=== PATIENT | female | born 1980 | race Asian ===

== ENCOUNTER 2018-05-31 14:38 | Inpatient (IN) | payer BC ==
[~2018-05-31] VITALS: Ht 154.9 cm; Wt 29.5 kg
[2018-05-31] MEDS ORDERED: D5 1/2NS w/KCl 20mEq 1,000 ML IV SCH (14:45)
--- NOTE | 2018-05-31 14:45 | Emergency Room Report ---
History of Present Illness General Source: Patient, EMS Present Illness HPI She is a 38-year-old female brought in by EMS after being found slumped over her steering wheel. Patient was noted to have abnormally low blood sugar when tested by EMS. Patient had been given D10 by EMS with some improvement in her blood sugar. Patient had not been vomiting. She reports having no food this morning. Patient states that she had previously been hospitalized after similar symptoms in the past.Patient had no prior surgeries. She has no prior history of diabetes. Allergies: Coded Allergies: No Known Allergies (Unverified , 05/31/18) Patient History Past Medical History: see triage record Reviewed Nursing Documentation: PMH: Agreed; PSxH: Agreed Review of Systems All Other Systems: negative except mentioned in HPI Physical Exam Sp02 EP Interpretation: reviewed, normal General Appearance: normal inspection, well appearing, no apparent distress, alert, GCS 15, Chronically Ill Head: atraumatic ENT: normal ENT inspection, hearing grossly normal, normal voice Neck: normal inspection, full range of motion, supple, no bony tend Respiratory: normal inspection, lungs clear, normal breath sounds, no respiratory distress, no retraction, no wheezing Cardiovascular #1: regular rate, rhythm, no edema Gastrointestinal: normal inspection, normal bowel sounds, non tender, soft, no guarding, no hernia Genitourinary: no CVA tenderness Musculoskeletal: normal inspection, back normal, normal range of motion Neurologic: normal inspection, alert, oriented x3, responsive, mangle press catcher III-XII nml as tested, motor strength/tone normal, speech normal Psychiatric: normal inspection, judgement/insight normal Skin: normal inspection, normal color, no rash Medical Decision Making Diagnostic Impression: Primary Impression: Hypoglycemia Additional Impression: Malnutrition ER Course Patient is a 38-year-old female presented after low blood sugar. Differential diagnosis includes is not limited to malnutrition, insulin overdose, sepsis, among others. Because of complexity of patient's case laboratory testing and imaging studies were ordered.Patient was given IV fluids as well as IV oral juice. Patient was noted to have been extremely thin with very little metabolic reserve. Patient's hypoglycemia is likely related to poor oral intake and anorexia. Dr. Kt Trivedi was contacted for inpatient management. Labs Test 05/31/18 15:05 05/31/18 15:12 06/01/18 06:45 06/02/18 06:18 Phosphorus Level 4.3 MG/DL (2.5-4.9) Magnesium Level 2.5 MG/DL (1.8-2.4) Total Bilirubin 0.5 MG/DL (0.2-1.0) Aspartate Amino Transf (AST/SGOT) 107 U/L (15-37) Alanine Aminotransferase (ALT/SGPT) 62 U/L (12-78) Alkaline Phosphatase 70 U/L (46-116) Troponin I 0.000 ng/mL (0.000-0.056) Total Protein 5.7 G/DL (6.4-8.2) Albumin 3.5 G/DL (3.4-5.0) Globulin 2.2 g/dL Albumin/Globulin Ratio 1.6 (1.0-2.7) Lipase 165 U/L (73-393) Urine Color Yellow Urine Appearance Cloudy Urine pH 7 (4.5-8.0) Urine Specific [place] 1.010 (1.005-1.035) Urine Protein 1+ (NEGATIVE) Urine Glucose (UA) 2+ (NEGATIVE) Urine Ketones Negative (NEGATIVE) Urine Blood Negative (NEGATIVE) Urine Nitrite Negative (NEGATIVE) Urine Bilirubin Negative (NEGATIVE) Urine Urobilinogen 1 MG/DL (0.0-1.0) Urine Leukocyte Esterase 1+ (NEGATIVE) Urine RBC 0-2 /HPF (0 - 2) Urine WBC 2-4 /HPF (0 - 2) Urine Squamous Epithelial Cells Occasional /LPF Urine Amorphous Sediment Many /LPF (NONE) Urine Bacteria Moderate /HPF (NONE) Urine HCG, Qualitative Negative (NEGATIVE) Urine Opiates Screen Negative (NEGATIVE) Urine Barbiturates Screen Negative (NEGATIVE) Phencyclidine (PCP) Screen Negative (NEGATIVE) Urine Amphetamines Screen Negative (NEGATIVE) Urine Benzodiazepines Screen Negative (NEGATIVE) Urine Cocaine Screen Negative (NEGATIVE) Urine Marijuana (THC) Screen Negative (NEGATIVE) Hypochromasia 1+ White Blood Count 2.8 K/UL (4.8-10.8) Red Blood Count 3.97 M/UL (4.20-5.40) Hemoglobin 13.1 G/DL (12.0-16.0) Hematocrit 37.1 % (37.0-47.0) Mean Corpuscular Volume 93 FL (80-99) Mean Corpuscular Hemoglobin 32.9 PG (27.0-31.0) Mean Corpuscular Hemoglobin Concent 35.3 G/DL (32.0-36.0) Red Cell Distribution Width 11.3 % (11.6-14.8) Platelet Count 122 K/UL (150-450) Mean Platelet Volume 6.2 FL (6.5-10.1) Neutrophils (%) (Auto) % (45.0-75.0) Lymphocytes (%) (Auto) % (20.0-45.0) Monocytes (%) (Auto) % (1.0-10.0) Eosinophils (%) (Auto) % (0.0-3.0) Basophils (%) (Auto) % (0.0-2.0) Differential Total Cells Counted 100 Neutrophils % (Manual) 44 % (45-75) Lymphocytes % (Manual) 48 % (20-45) Monocytes % (Manual) 7 % (1-10) Eosinophils % (Manual) 0 % (0-3) Basophils % (Manual) 0 % (0-2) Band Neutrophils 1 % (0-8) Platelet Estimate Decreased Platelet Morphology Normal Red Blood Cell Morphology Normal Sodium Level 139 MMOL/L (136-145) Potassium Level 4.2 MMOL/L (3.5-5.1) Chloride Level 105 MMOL/L (98-107) Carbon Dioxide Level 29 MMOL/L (21-32) Anion Gap 5 mmol/L (5-15) Blood Urea Nitrogen 26 mg/dL (7-18) Creatinine 0.9 MG/DL (0.55-1.30) Estimat Glomerular Filtration Rate > 60 mL/min (>60) Glucose Level 56 MG/DL (74-106) Calcium Level 8.6 MG/DL (8.5-10.1) EKG Diagnostic Results Rate: bradycardiac - 42 Rhythm: NSR ST Segments: no acute changes Status: improved Disposition: ADMITTED INPATIENT Condition: Stable Scripts No Active Prescriptions or Reported Meds Alberto Noe MD May 31, 2018 14:45
[2018-05-31 15:00] VITALS: BP 107/73
[2018-05-31 15:35] LABS: ANION GAP 8 mmol/L (5-15); BLOOD UREA NITROGEN 38 mg/dL (7-18); CALCIUM 8.2 MG/DL (8.5-10.1); CARBON DIOXIDE 29 MMOL/L (21-32); CHLORIDE 106 MMOL/L (98-107); CREATININE 1.1 MG/DL (0.55-1.30); POTASSIUM 3.9 MMOL/L (3.5-5.1); SODIUM 143 MMOL/L (136-145)
[2018-05-31 15:36] LABS: APPEARANCE,URINE CLOUDY; BILIRUBIN, URINE NEGATIVE (NEGATIVE); GLUCOSE, URINE (UA) 2+ (NEGATIVE); KETONES,URINE NEGATIVE (NEGATIVE); LEUKOCYTE ESTERASE ,URINE 1+ (NEGATIVE); NITRITE,URINE NEGATIVE (NEGATIVE); PH,URINE 7 (4.5-8.0); PROTEIN,URINE 1+ (NEGATIVE); UROBILINOGEN,URINE 1 MG/DL (0.0-1.0)
[2018-05-31 15:39] LABS: ALANINE AMINOTRANSFERASE 62 U/L (12-78); ALBUMIN 3.5 G/DL (3.4-5.0); ALBUMIN/GLOBULIN RATIO 1.6 (1.0-2.7); ALKALINE PHOSPHATASE 70 U/L (46-116); ASPARTATE AMINO TRANSFERASE 107 U/L (15-37); BILIRUBIN,TOTAL 0.5 MG/DL (0.2-1.0)
[2018-05-31 15:41] LABS: COLOR,URINE YELLOW
[2018-05-31 15:54] LABS: BASOPHILS % (AUTO) 0.4 % (0.0-2.0); EOSINOPHILS % (AUTO) 0.1 % (0.0-3.0); HEMATOCRIT 31.9 % (37.0-47.0); HEMOGLOBIN 11.1 G/DL (12.0-16.0); LYMPHOCYTES % (AUTO) 14.8 % (20.0-45.0); MEAN CORPUSCULAR VOLUME 92 FL (80-99); MONOCYTES % (AUTO) 3.3 % (1.0-10.0); NEUTROPHILS % (AUTO) 81.7 % (45.0-75.0); PLATELET COUNT 108 K/UL (150-450); RED BLOOD COUNT 3.46 M/UL (4.20-5.40); RED CELL DISTRIBUTION WIDTH 10.6 % (11.6-14.8)
[2018-05-31 16:00] VITALS: BP 104/71
[2018-05-31 16:35] LABS: PHOSPHORUS 4.3 MG/DL (2.5-4.9)
[2018-05-31 17:03] VITALS: BP 103/72
--- NOTE | 2018-05-31 18:23 | Consultation ---
History of Present Illness General Date patient seen: May 31, 2018 Time patient seen: 18:23 Chief Complaint: Abnormal Labs Present Illness HPI The patient is a 38-year-old [place] female with known history of bulimia and anorexia. The patient says that she does induce vomiting on a daily basis. She was brought in by EMS after having a hypoglycemic syncopal episode while driving. She was given glucose and has improved drastically. She is drastically underweight at 66 pounds. The patient says that she does struggle with eating disorders. No chest pain, nausea, vomiting, or diarrhea. The patient denies any taking any medications to induce diarrhea or vomiting. Cardiology consulted to evaluate for cardiac cachexia and bradycardia. Allergies: Coded Allergies: No Known Allergies (Unverified , 05/31/18) Medication History No Active Prescriptions or Reported Meds Patient History Healthcare decision maker Resuscitation status Advanced Directive on File Review of Systems Constitutional: Reports: no symptoms Eye: Reports: no symptoms ENT: Reports: no symptoms Respiratory: Reports: no symptoms Cardiovascular: Reports: no symptoms Gastrointestinal: Reports: abdominal pain, vomiting Genitourinary: Reports: no symptoms Musculoskeletal: Reports: no symptoms Skin: Reports: no symptoms Psychiatric: Reports: no symptoms Neurological: Reports: no symptoms Endocrine: Reports: no symptoms Hematologic/Lymphatic: Reports: no symptoms Physical Exam General Appearance: no apparent distress, alert Lines, tubes and drains: peripheral HEENT: normocephalic, atraumatic Neck: non-tender, normal alignment, supple Respiratory/Chest: chest wall non-tender, lungs clear, normal breath sounds Cardiovascular/Chest: normal peripheral pulses, normal rate, regular rhythm Abdomen: normal bowel sounds, non tender, soft Extremities: normal range of motion, non-tender, normal inspection Skin Exam: normal pigmentation 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, no motor/sensory deficits Last 24 Hour Vital Signs Date Time Temp Pulse Resp B/P (MAP) Pulse Ox O2 Delivery O2 Flow Rate FiO2 05/31/18 18:08 98.0 46 15 104/72 99 Room Air 05/31/18 17:03 98.1 48 13 103/72 100 Room Air 05/31/18 17:02 48 13 Room Air 05/31/18 16:00 44 12 104/71 100 Room Air 05/31/18 15:00 94.5 44 11 107/73 100 Room Air 05/31/18 14:40 98.1 55 12 121/57 99 Room Air Laboratory Tests Test 05/31/18 15:05 05/31/18 15:12 White Blood Count 3.0 K/UL (4.8-10.8) L Red Blood Count 3.46 M/UL (4.20-5.40) L Hemoglobin 11.1 G/DL (12.0-16.0) L Hematocrit 31.9 % (37.0-47.0) L Mean Corpuscular Volume 92 FL (80-99) Mean Corpuscular Hemoglobin 31.9 PG (27.0-31.0) H Mean Corpuscular Hemoglobin Concent 34.7 G/DL (32.0-36.0) Red Cell Distribution Width 10.6 % (11.6-14.8) L Platelet Count 108 K/UL (150-450) L Mean Platelet Volume 6.6 FL (6.5-10.1) Neutrophils (%) (Auto) 81.7 % (45.0-75.0) H Lymphocytes (%) (Auto) 14.8 % (20.0-45.0) L Monocytes (%) (Auto) 3.3 % (1.0-10.0) Eosinophils (%) (Auto) 0.1 % (0.0-3.0) Basophils (%) (Auto) 0.4 % (0.0-2.0) Sodium Level 143 MMOL/L (136-145) Potassium Level 3.9 MMOL/L (3.5-5.1) Chloride Level 106 MMOL/L (98-107) Carbon Dioxide Level 29 MMOL/L (21-32) Anion Gap 8 mmol/L (5-15) Blood Urea Nitrogen 38 mg/dL (7-18) H Creatinine 1.1 MG/DL (0.55-1.30) Estimat Glomerular Filtration Rate 55.9 mL/min (>60) Glucose Level 205 MG/DL (74-106) H Calcium Level 8.2 MG/DL (8.5-10.1) L Phosphorus Level 4.3 MG/DL (2.5-4.9) Magnesium Level 2.5 MG/DL (1.8-2.4) H Total Bilirubin 0.5 MG/DL (0.2-1.0) Aspartate Amino Transf (AST/SGOT) 107 U/L (15-37) H Alanine Aminotransferase (ALT/SGPT) 62 U/L (12-78) Alkaline Phosphatase 70 U/L (46-116) Troponin I 0.000 ng/mL (0.000-0.056) Total Protein 5.7 G/DL (6.4-8.2) L Albumin 3.5 G/DL (3.4-5.0) Globulin 2.2 g/dL Albumin/Globulin Ratio 1.6 (1.0-2.7) Lipase 165 U/L (73-393) Urine Color Yellow Urine Appearance Cloudy Urine pH 7 (4.5-8.0) Urine Specific [place] 1.010 (1.005-1.035) Urine Protein 1+ (NEGATIVE) H Urine Glucose (UA) 2+ (NEGATIVE) H Urine Ketones Negative (NEGATIVE) Urine Blood Negative (NEGATIVE) Urine Nitrite Negative (NEGATIVE) Urine Bilirubin Negative (NEGATIVE) Urine Urobilinogen 1 MG/DL (0.0-1.0) H Urine Leukocyte Esterase 1+ (NEGATIVE) H Urine RBC 0-2 /HPF (0 - 2) Urine WBC 2-4 /HPF (0 - 2) Urine Squamous Epithelial Cells Occasional /LPF Urine Amorphous Sediment Many /LPF (NONE) H Urine Bacteria Moderate /HPF (NONE) H Urine HCG, Qualitative Negative (NEGATIVE) Height (Feet): 5 Height (Inches): 1.00 Weight (Pounds): 65 Medications Current Medications Medications (Trade) Dose Ordered Sig/[place]ieve Route PRN Reason Start Time Stop Time Status Last Admin Dose Admin Ceftriaxone Sodium 1 gm/ Dextrose 55 ml @ 110 mls/hr Q24H IVPB 05/31/18 18:00 06/07/18 17:59 Dextrose (Dextrose 50%) 25 ml Q30M PRN IV Hypoglycemia 05/31/18 16:45 06/30/18 16:44 Dextrose (Dextrose 50%) 50 ml Q30M PRN IV Hypoglycemia 05/31/18 16:45 06/30/18 16:44 Dextrose/ Electrolytes 1,000 ml @ 100 mls/hr Q10H IV 05/31/18 17:36 06/30/18 17:35 Famotidine (Pepcid) 20 mg DAILY ORAL 06/01/18 09:00 07/01/18 08:59 Ondansetron HCl (Zofran) 4 mg Q6H PRN IVP Nausea & Vomiting 05/31/18 16:45 06/30/18 16:44 Assessment/Plan Status: stable Assessment/Plan ASSESSMENT: Bradycardia Syncope Hypoglycemia Anorexia/bulemia Electrolyte abnormalities Plan: Multivitamin Echo to evaluate LV function IV fluids Psych consult Replete electrolytes Go Hawkins MD May 31, 2018 18:23
[2018-05-31 18:25] VITALS: BP 116/76
--- NOTE | 2018-05-31 18:30 | History and Physical Report ---
DATE OF ADMISSION: 05/31/2018 REASON FOR ADMISSION: 1. Bradycardia. 2. Electrolyte abnormalities. 3. Hypoglycemia. HISTORY OF PRESENT ILLNESS: The patient is a 38-year-old [place] female with known history of bulimia and anorexia. The patient says that she does induce vomiting on a daily basis. She does have multiple cavities. She was brought in by EMS after having a hypoglycemic syncopal episode while driving. She was given glucose and has improved drastically. She is drastically underweight at 66 pounds. The patient says that she does struggle with eating disorders. No chest pain, nausea, vomiting, or diarrhea. The patient denies any taking any medications to induce diarrhea or vomiting. ALLERGIES: No known drug allergies. PAST MEDICAL HISTORY: Anorexia bulimia. PAST SURGICAL HISTORY: Noncontributory. FAMILY HISTORY: Noncontributory. REVIEW OF SYSTEMS: NEUROLOGIC: The patient has presyncopal episodes. CARDIOVASCULAR: No current chest pain, palpitations, or angina. PULMONARY: No difficulty breathing, productive cough, or sputum. GASTROINTESTINAL/GENITOURINARY: No change in urinary or bowel habits. No nausea or diarrhea. The patient has been vomiting self-induced. MUSCULOSKELETAL: The patient feeling weak, tired and fatigue. LABORATORY AND DIAGNOSTIC DATA: Labs dated May 31, 2018 positive for moderate bacteria in the urine. Sodium 143, potassium 3.9. Magnesium and phosphorus still pending. Albumin 3.5. White cell count 3, hemoglobin 11, and platelet count 108. PHYSICAL EXAMINATION: VITAL SIGNS: Blood pressure 121/57, respiratory rate 12, pulse 55, temperature 98.1, 99% on room air. GENERAL: The patient awake, alert, not otherwise in distress. HEENT: Extraocular muscles intact. No lymphadenopathy noted. CARDIOVASCULAR: S1 and S2. No murmurs, rubs, or gallops. PULMONARY: Clear to auscultation bilaterally. No rales, rhonchi or wheezes. ABDOMINAL: Nondistended and nontender. EXTREMITIES: No edema. Overall, the patient has a physical appearance of very cachectic with multiple oral cavities. ASSESSMENT: 1. Presyncopal episode secondary to hypoglycemia due to self-induced vomiting and poor oral nutrition. The patient has been initiated on D5 half-normal saline. We will continue to follow her serum glucose carefully with bedside Accu-Cheks. 2. Electrolyte abnormalities. Magnesium and phosphorus still pending. Concern is for possible refeeding syndrome. 3. Hypoglycemia secondary to bulimia. We will continue to monitor. 4. DVT prophylaxis with SCDs. Kt Trivedi MD DR: Ignacio JOB#: [id number] CC:
[2018-05-31 20:00] VITALS: BP 112/69
[2018-05-31] MEDS: D5 1/2NS w/KCl 40meq 1000ml 1,000 ML IV SCH (20:17)
[2018-05-31] MEDS: cefTRIAXone 1gm/D5W 55ml IVPB SCH ×2 (20:17)
[2018-06-01] VITALS: BP 112/58
[2018-06-01] MEDS: D5 1/2NS w/KCl 40meq 1000ml 1,000 ML IV SCH (03:33)
[2018-06-01 04:00] VITALS: BP 106/57
[2018-06-01 07:31] LABS: HEMATOCRIT 31.1 % (37.0-47.0); MEAN CORPUSCULAR VOLUME 92 FL (80-99); PLATELET COUNT 105 K/UL (150-450); RED BLOOD COUNT 3.38 M/UL (4.20-5.40); RED CELL DISTRIBUTION WIDTH 10.9 % (11.6-14.8); WHITE BLOOD COUNT 2.6 K/UL (4.8-10.8)
[2018-06-01 07:34] LABS: ANION GAP 5 mmol/L (5-15); BLOOD UREA NITROGEN 25 mg/dL (7-18); CALCIUM 8.1 MG/DL (8.5-10.1); CARBON DIOXIDE 29 MMOL/L (21-32); CHLORIDE 105 MMOL/L (98-107); CREATININE 0.9 MG/DL (0.55-1.30); SODIUM 138 MMOL/L (136-145)
[2018-06-01 08:00] VITALS: BP 115/70
--- NOTE | 2018-06-01 10:32 | Nephrology Progress Note ---
Assessment/Plan Assessment/Plan A/P 1) Bradycardia- has bullemia - ECHO pending, per cardiology evaluation 2) Hypoglycemia induced syncope- resolved on D5W. Will DC IVFs 3) Bullemia- patient declined in patient psy evaluation. No suicidal ideation - start Nepro 4) DVT prophylaxsis with SCDs Subjective Date patient seen: Jun 01, 2018 Time patient seen: 10:29 ROS Limited/Unobtainable: No Constitutional: Reports: malaise, weakness Allergies: Coded Allergies: No Known Allergies (Unverified , 05/31/18) Subjective Patient remains bradycardic Objective Last 24 Hour Vital Signs Date Time Temp Pulse Resp B/P (MAP) Pulse Ox O2 Delivery O2 Flow Rate FiO2 06/01/18 08:00 98.4 44 17 115/70 (85) 100 06/01/18 04:00 97.2 46 20 106/57 (73) 100 06/01/18 04:00 47 06/01/18 00:00 97.5 43 19 112/58 (76) 98 06/01/18 00:00 43 05/31/18 20:00 97.1 46 16 112/69 (83) 98 05/31/18 20:00 48 05/31/18 20:00 Room Air 05/31/18 18:25 96.6 44 16 116/76 (89) 100 05/31/18 18:08 98.0 46 15 104/72 99 Room Air 05/31/18 17:03 98.1 48 13 103/72 100 Room Air 05/31/18 17:02 48 13 Room Air 05/31/18 16:00 44 12 104/71 100 Room Air 05/31/18 15:00 94.5 44 11 107/73 100 Room Air 05/31/18 14:40 98.1 55 12 121/57 99 Room Air Intake and Output 05/31/18 06/01/18 18:59 06:59 Intake Total 200 ml 545 ml Balance 200 ml 545 ml Intake IV Total 200 ml 545 ml # Voids 1 3 Laboratory Tests 05/31/18 15:05: White Blood Count 3.0L, Red Blood Count 3.46L, Hemoglobin 11.1L, Hematocrit 31.9L, Mean Corpuscular Volume 92, Mean Corpuscular Hemoglobin 31.9H, Mean Corpuscular Hemoglobin Concent 34.7, Red Cell Distribution Width 10.6L, Platelet Count 108L, Mean Platelet Volume 6.6, Neutrophils (%) (Auto) 81.7H, Lymphocytes (%) (Auto) 14.8L, Monocytes (%) (Auto) 3.3, Eosinophils (%) (Auto) 0.1, Basophils (%) (Auto) 0.4, Sodium Level 143, Potassium Level 3.9, Chloride Level 106, Carbon Dioxide Level 29, Anion Gap 8, Blood Urea Nitrogen 38H, Creatinine 1.1, Estimat Glomerular Filtration Rate 55.9, Glucose Level 205H, Calcium Level 8.2L, Phosphorus Level 4.3, Magnesium Level 2.5H, Total Bilirubin 0.5, Aspartate Amino Transf (AST/SGOT) 107H, Alanine Aminotransferase (ALT/SGPT ) 62, Alkaline Phosphatase 70, Troponin I 0.000, Total Protein 5.7L, Albumin 3.5 , Globulin 2.2, Albumin/Globulin Ratio 1.6, Lipase 165 05/31/18 15:12: Urine Color Yellow, Urine Appearance Cloudy, Urine pH 7, Urine Specific [place] 1.010, Urine Protein 1+H, Urine Glucose (UA) 2+H, Urine Ketones Negative, Urine Blood Negative, Urine Nitrite Negative, Urine Bilirubin Negative, Urine Urobilinogen 1H, Urine Leukocyte Esterase 1+H, Urine RBC 0-2, Urine WBC 2-4, Urine Squamous Epithelial Cells Occasional, Urine Amorphous Sediment ManyH, Urine Bacteria ModerateH, Urine HCG, Qualitative Negative, Urine Opiates Screen Negative, Urine Barbiturates Screen Negative, Phencyclidine (PCP) Screen Negative, Urine Amphetamines Screen Negative, Urine Benzodiazepines Screen Negative, Urine Cocaine Screen Negative, Urine Marijuana (THC) Screen Negative 06/01/18 06:45: White Blood Count 2.6L, Red Blood Count 3.38L, Hemoglobin 11.0L, Hematocrit 31.1L, Mean Corpuscular Volume 92, Mean Corpuscular Hemoglobin 32.5H, Mean Corpuscular Hemoglobin Concent 35.2, Red Cell Distribution Width 10.9L, Platelet Count 105L, Mean Platelet Volume 6.8, Neutrophils (%) (Auto) , Lymphocytes (%) (Auto) , Monocytes (%) (Auto) , Eosinophils (%) (Auto) , Basophils (%) (Auto) , Sodium Level 138, Potassium Level 5.0, Chloride Level 105 , Carbon Dioxide Level 29, Anion Gap 5, Blood Urea Nitrogen 25H, Creatinine 0.9 , Estimat Glomerular Filtration Rate > 60, Glucose Level 98#, Calcium Level 8.1L , Differential Total Cells Counted 100, Neutrophils % (Manual) 77H, Lymphocytes % (Manual) 16L, Monocytes % (Manual) 7, Eosinophils % (Manual) 0, Basophils % ( Manual) 0, Band Neutrophils 0, Platelet Estimate DecreasedL, Platelet Morphology Normal, Hypochromasia 1+ Height (Feet): 5 Height (Inches): 1.00 Weight (Pounds): 65 General Appearance: no apparent distress, alert EENT: normal ENT inspection Neck: normal alignment, supple Cardiovascular: normal rate, regular rhythm Respiratory/Chest: lungs clear, normal breath sounds Abdomen: non tender, soft Edema: no edema noted Arm (L), no edema noted Arm (R), no edema noted Leg (L), no edema noted Leg (R), no edema noted Pedal (L), no edema noted Pedal (R), no edema noted Generalized Kt Trivedi MD Jun 01, 2018 10:32
--- NOTE | 2018-06-01 11:15 | Diagnostic Imaging Report ---
Indication: Chest pain Technique: One view of the chest Comparison: none Findings: Lungs are hyperinflated. The heart size is normal. The lungs and pleural spaces are clear. Impression: Pulmonary hyperinflation, may indicate asthma No acute process
[2018-06-01 12:00] VITALS: BP 100/66
--- NOTE | 2018-06-01 14:18 | Cardiology Report ---
APPROVED REPORT EKG Measurement Heart [id number] Marked sinus bradycardia Nonspecific T wave abnormality Abnormal ECG
[2018-06-01 16:00] VITALS: BP 115/79
--- NOTE | 2018-06-01 16:32 | Cardiology Progress Note ---
Assessment/Plan Status: stable Assessment/Plan Assessment/Plan Status: stable Assessment/Plan ASSESSMENT: Bradycardia Syncope Hypoglycemia Anorexia/bulemia Electrolyte abnormalities Plan: Multivitamin Echo to evaluate LV function IV fluids Psych consult Replete electrolytes Subjective Cardiovascular: Reports: no symptoms Respiratory: Reports: no symptoms Gastrointestinal/Abdominal: Reports: no symptoms Genitourinary: Reports: no symptoms Subjective No acute events, vitals stable, no distress Objective Last 24 Hour Vital Signs Date Time Temp Pulse Resp B/P (MAP) Pulse Ox O2 Delivery O2 Flow Rate FiO2 06/01/18 14:00 38 06/01/18 12:00 98.2 46 18 100/66 (77) 100 06/01/18 08:20 Room Air 06/01/18 08:00 98.4 44 17 115/70 (85) 100 06/01/18 07:59 40 06/01/18 04:00 97.2 46 20 106/57 (73) 100 06/01/18 04:00 47 06/01/18 00:00 97.5 43 19 112/58 (76) 98 06/01/18 00:00 43 05/31/18 20:00 97.1 46 16 112/69 (83) 98 05/31/18 20:00 48 05/31/18 20:00 Room Air 05/31/18 18:25 96.6 44 16 116/76 (89) 100 05/31/18 18:08 98.0 46 15 104/72 99 Room Air 05/31/18 17:03 98.1 48 13 103/72 100 Room Air 05/31/18 17:02 48 13 Room Air General Appearance: no apparent distress EENT: PERRL/EOMI, normal ENT inspection, TMs normal Neck: non-tender, normal alignment, supple, normal inspection, no JVD Rhythm: NSR Cardiovascular: normal peripheral pulses, normal rate, regular rhythm, regularly irregular Respiratory/Chest: chest wall non-tender, lungs clear, normal breath sounds Abdomen: normal bowel sounds, non tender, soft, no organomegaly Extremities: normal range of motion, non-tender, normal inspection 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: 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, no motor/sensory deficits Intake and Output 05/31/18 06/01/18 18:59 06:59 Intake Total 200 ml 545 ml Balance 200 ml 545 ml Intake IV Total 200 ml 545 ml # Voids 1 3 Laboratory Tests Test 06/01/18 06:45 White Blood Count 2.6 K/UL (4.8-10.8) L Red Blood Count 3.38 M/UL (4.20-5.40) L Hemoglobin 11.0 G/DL (12.0-16.0) L Hematocrit 31.1 % (37.0-47.0) L Mean Corpuscular Volume 92 FL (80-99) Mean Corpuscular Hemoglobin 32.5 PG (27.0-31.0) H Mean Corpuscular Hemoglobin Concent 35.2 G/DL (32.0-36.0) Red Cell Distribution Width 10.9 % (11.6-14.8) L Platelet Count 105 K/UL (150-450) L Mean Platelet Volume 6.8 FL (6.5-10.1) Neutrophils (%) (Auto) % (45.0-75.0) Lymphocytes (%) (Auto) % (20.0-45.0) Monocytes (%) (Auto) % (1.0-10.0) Eosinophils (%) (Auto) % (0.0-3.0) Basophils (%) (Auto) % (0.0-2.0) Differential Total Cells Counted 100 Neutrophils % (Manual) 77 % (45-75) H Lymphocytes % (Manual) 16 % (20-45) L Monocytes % (Manual) 7 % (1-10) Eosinophils % (Manual) 0 % (0-3) Basophils % (Manual) 0 % (0-2) Band Neutrophils 0 % (0-8) Platelet Estimate Decreased L Platelet Morphology Normal Hypochromasia 1+ Sodium Level 138 MMOL/L (136-145) Potassium Level 5.0 MMOL/L (3.5-5.1) Chloride Level 105 MMOL/L (98-107) Carbon Dioxide Level 29 MMOL/L (21-32) Anion Gap 5 mmol/L (5-15) Blood Urea Nitrogen 25 mg/dL (7-18) H Creatinine 0.9 MG/DL (0.55-1.30) Estimat Glomerular Filtration Rate > 60 mL/min (>60) Glucose Level 98 MG/DL (74-106) # Calcium Level 8.1 MG/DL (8.5-10.1) L Microbiology Date/Time Source Procedure Growth Status 05/31/18 15:12 Urine,Clean Catch Urine Culture - Preliminary Gram Negative Bacillus 1 Resulted Go Hawkins MD Jun 01, 2018 16:32
[2018-06-01] MEDS: cefTRIAXone 1gm/D5W 55ml IVPB SCH ×2 (18:08)
[2018-06-01 20:00] VITALS: BP 111/75
[2018-06-02] VITALS: BP 114/68
[2018-06-02 04:00] VITALS: BP 110/64
[2018-06-02 07:29] LABS: HEMATOCRIT 37.1 % (37.0-47.0); HEMOGLOBIN 13.1 G/DL (12.0-16.0); MEAN CORPUSCULAR VOLUME 93 FL (80-99); PLATELET COUNT 122 K/UL (150-450); RED BLOOD COUNT 3.97 M/UL (4.20-5.40); RED CELL DISTRIBUTION WIDTH 11.3 % (11.6-14.8); WHITE BLOOD COUNT 2.8 K/UL (4.8-10.8)
[2018-06-02 07:45] LABS: ANION GAP 5 mmol/L (5-15); BLOOD UREA NITROGEN 26 mg/dL (7-18); CALCIUM 8.6 MG/DL (8.5-10.1); CARBON DIOXIDE 29 MMOL/L (21-32); CHLORIDE 105 MMOL/L (98-107); CREATININE 0.9 MG/DL (0.55-1.30); POTASSIUM 4.2 MMOL/L (3.5-5.1); SODIUM 139 MMOL/L (136-145)
[2018-06-02 08:00] VITALS: BP 102/66
--- NOTE | 2018-06-02 09:13 | Nephrology Progress Note ---
Assessment/Plan Assessment/Plan A/P 1) Bradycardia- has bullemia - ECHO pending, DC once cleared by cardiology 2) Hypoglycemia induced syncope- resolved. Patient bullemic, eating here in hospital 3) Bullemia- patient declined in patient psy evaluation. No suicidal ideation - started Nepro 4) DVT prophylaxsis with SCDs Subjective Date patient seen: Jun 02, 2018 Time patient seen: 09:11 ROS Limited/Unobtainable: No Allergies: Coded Allergies: No Known Allergies (Unverified , 05/31/18) Subjective Patient remains bradycardic. Feeling better. Glucose improved with food Objective Last 24 Hour Vital Signs Date Time Temp Pulse Resp B/P (MAP) Pulse Ox O2 Delivery O2 Flow Rate FiO2 06/02/18 08:00 97.9 43 19 102/66 (78) 98 06/02/18 04:00 98.1 46 18 110/64 (79) 100 06/02/18 04:00 42 06/02/18 00:00 31 06/02/18 00:00 96.8 31 20 114/68 (83) 98 06/01/18 21:00 Room Air 06/01/18 20:00 47 06/01/18 20:00 96.8 41 20 111/75 (87) 100 06/01/18 16:33 40 06/01/18 16:00 98.1 44 17 115/79 (91) 100 06/01/18 14:00 38 06/01/18 12:00 98.2 46 18 100/66 (77) 100 Intake and Output 06/01/18 06/02/18 19:00 07:00 Intake Total 480 ml Balance 480 ml Intake Oral 480 ml # Voids 3 2 Laboratory Tests 06/02/18 06:18: White Blood Count 2.8L, Red Blood Count 3.97L, Hemoglobin 13.1, Hematocrit 37.1 , Mean Corpuscular Volume 93, Mean Corpuscular Hemoglobin 32.9H, Mean Corpuscular Hemoglobin Concent 35.3, Red Cell Distribution Width 11.3L, Platelet Count 122L, Mean Platelet Volume 6.2L, Neutrophils (%) (Auto) , Lymphocytes (%) (Auto) , Monocytes (%) (Auto) , Eosinophils (%) (Auto) , Basophils (%) (Auto) , Differential Total Cells Counted 100, Neutrophils % ( Manual) 44L, Lymphocytes % (Manual) 48H, Monocytes % (Manual) 7, Eosinophils % ( Manual) 0, Basophils % (Manual) 0, Band Neutrophils 1, Platelet Estimate DecreasedL, Platelet Morphology Normal, Red Blood Cell Morphology Normal, Sodium Level 139, Potassium Level 4.2, Chloride Level 105, Carbon Dioxide Level 29, Anion Gap 5, Blood Urea Nitrogen 26H, Creatinine 0.9, Estimat Glomerular Filtration Rate > 60, Glucose Level 56L, Calcium Level 8.6 Height (Feet): 5 Height (Inches): 1.00 Weight (Pounds): 65 General Appearance: no apparent distress, alert EENT: normal ENT inspection Neck: normal alignment, supple Cardiovascular: regular rhythm, bradycardia Respiratory/Chest: lungs clear, normal breath sounds Abdomen: non tender, soft Edema: no edema noted Arm (L), no edema noted Arm (R), no edema noted Leg (L), no edema noted Leg (R), no edema noted Pedal (L), no edema noted Pedal (R), no edema noted Generalized Kt Trivedi MD Jun 02, 2018 09:13
[2018-06-02 12:00] VITALS: BP 102/60
--- NOTE | 2018-06-02 12:08 | Cardiology Report ---
APPROVED REPORT EXAM: Two-dimensional and M-mode echocardiogram with Doppler and color Doppler. INDICATION LV FUNCTION M-Mode DIMENSIONS IVSd0.7 (0.7-1.1cm)Left Atrium (MM)2.5 (1.6-4.0cm) LVDd3.9 (3.5-5.6cm)Aortic Root2.7 (2.0-3.7cm) PWd7.0 (0.7-1.1cm)Aortic Cusp Exc.1.7 (1.5-2.0cm) IVSs1.0 cm LVDs2.8 (2.5-4.0cm) PWs1.1 cm Normal left ventricular chamber size, systolic function and wall motion . Left ventricular ejection fraction estimated to be 55-60 %. No evidence of left ventricular hypertrophy. No evidence of pericardial effusion. All other cardiac chamber sizes are within normal limits. Focal aortic valve sclerosis with adequate cusp excursion. Thickened mitral valve leaflets with normal excursion. Mitral annulus and aortic root calcification. Pulmonic valve not well visualized. Normal tricuspid valve structure. IVC at normal size with physiologic collapse. A color flow and spectral Doppler study was performed and revealed: No aortic insufficiency . Moderate mitral regurgitation. Mitral diastolic velocities suggest reduced left ventricular relaxation c/w mild LV diastolic dysfunction (Grade I ). Mild tricuspid regurgitation. Tricuspid systolic velocities suggests peak right ventricular systolic pressure of 23 mmHg.
--- NOTE | 2018-06-02 14:25 | Discharge Instructions ---
Discharge Instructions Discharge Instructions Services at Discharge: day care Diet: regular Additional Diet Information: Ensure 3 cans a day Resume Normal Activity?: Yes Follow Up Orders Follow up with PCP one week. Follow up PSY this week For Congestive Heart Failure Reminder Report to your physician any weight gain of 5 pounds or more in one week. Kt Trivedi MD Jun 02, 2018 14:25
--- NOTE | 2018-06-03 12:59 | Discharge Summary ---
Discharge Summary Discharge Summary _ DATE OF ADMISSION: 05/31/2018 DATE OF DISCHARGE: 06/02/2018 DISCHARGED BY: Dr. Trivedi REASON FOR ADMISSION: 38 years old Greek female with past medical history of anorexia and bulimia , brought to emergency department after having hypoglycemic syncopal episode while driving. Patient was given D10 by molded rubber goods cutter with significant improvement in blood sugar. Patient reported self induced vomiting on a daily basis. Patient had multiply cavities. Patient presented as significantly underweight at 65 pounds. Patient denied chest pain, nausea, vomiting ,diarrhea . Patient denied taking any medication to induce diarrhea or vomiting. Upon evaluation patient was found to be bradycardic 55. Troponin negative. EKG revealed sinus bradycardia . Laboratory workup revealed leukopenia with WBC 3.0, hemoglobin 11.1 hematocrit 21.9. Platelet count 108. BUN 38 creatinine 1.1. Glucose 205. Urine toxicology screen was negative. Urinalysis revealed moderate bacteria, +1 leukocyte esterase, +1 protein. Chest x-ray revealed pulmonary hyperinflation , possibly indicative of asthma. No acute cardiopulmonary pathology. Patient admitted with syncopal episode due to hypoglycemia , poor oral nutrition, electrolyte abnormalities, bulimia, hypoglycemia secondary to bulimia, UTI. CONSULTANTS: job coaching Dr. Hawkins [facility] COURSE: Patient admitted to telemetry floor. Patient started on IV fluids. Glucose was closely monitor with Accu-Cheks. Electrolytes were closely monitored and corrected as needed. Concern was for possible refeeding syndrome. DVT prophylaxis with SCD provided. Patient started on antibiotics. Urine culture revealed Klebsiella. Patient noted to have bradycardia, rate in 40s, likely due to bulimia. Telemetry revealed sinus bradycardia, no heart block, no pauses. Cardiology consult was requested. Echocardiogram revealed preserved ejection fraction 55-60%. No evidence of left ventricular hypertrophy. No evidence of pericardial effusion. No evidence of wall motion abnormality. Moderate mitral regurgitation. Right ventricular systolic pressure of 23. Nutritional evaluation was requested. Patient appeared to be at high risk for malnutrition and high risk for refeeding syndrome. Dietary recommendations implemented in plan of care. Patient declined inpatient psychiatric evaluation. No suicidal ideation. Patient stabilized and was ready for discharge home. Patient was recommended to have nutritional and psychiatric evaluation as outpatient. FINAL DIAGNOSES: Bradycardia, likely secondary to bulimia Syncopal episode,secondary to hypoglycemia Anorexia, bulimia Electrolyte abnormality Klebsiella UTI DISCHARGE MEDICATIONS: See Medication Reconciliation list. DISCHARGE INSTRUCTIONS: Patient was discharged home. Follow up with primary care provider in one week. I have been assigned to dictate discharge summary for this account. I was not involved in the patient's management. Angelique Silva NP Jun 03, 2018 12:59
== END 2018-06-02 15:10 | disposition home or self-care (01) | DRG 644 ==
LOC: EDBD 14:38 → EMR 15:00 → 2E 15:46 → EDBEDREQ 16:55
DX: E16.1 Other hypoglycemia (principal); F50.00 Anorexia nervosa, unspecified; Z68.1 Body mass index [BMI] 19.9 or less, adult; F50.2 Bulimia nervosa; N39.0 Urinary tract infection, site not specified; R00.1 Bradycardia, unspecified; B96.1 Klebsiella pneumoniae [K. pneumoniae] as the cause of diseases classified elsewhere; R55 Syncope and collapse; I34.0 Nonrheumatic mitral (valve) insufficiency; E87.8 Other disorders of electrolyte and fluid balance, not elsewhere classified
CPT/HCPCS: 36415; 71045; 80048; 80053; 80307; 81003; 81025; 82962; 83690; 83735; 84100; 84484; 85007; 85025; 86850; 86900; 86901; 87081; 87086; 87181; 93005; 93306; 96365; 96366; 99285